=== PATIENT | female | born 1995 | race Caucasian/White ===

== ENCOUNTER 2018-09-06 06:06 | Emergency (ER) | payer OTHER ==
[2018-09-06 06:22] VITALS: RESP 18
[2018-09-06 06:43] LABS: Appearance,Urine Clear (Clear); Bilirubin,Urine Negative (Negative); Blood,Urine Negative (Negative); Color,Urine Light Yellow; Glucose,Urine (UA) Negative (Negative); Ketones,Urine Negative (Negative); Leukocyte Esterase,Urine Trace (Negative); Mucus,Urine Rare /hpf; Nitrite,Urine Negative (Negative); PH, Urine 6.5 (5.0-8.0); Protein,Urine Negative (Negative); RBC,Urine 1 /hpf (0-5); Specific Gravity,Urine 1.026 (1.001-1.035); Squamous Epithelial Cell,Urine 5 /hpf (0-4); Urobilinogen,Urine <2.0 mg/dL (<2.0); WBC,Urine 6 /hpf (0-5)
[2018-09-06 07:00] LABS: Basophils # (A) 0.1 k/uL (0-0.2); Basophils % (A) 1 %; Eosinophils # (A) 0.4 k/uL (0-0.7); Eosinophils % (A) 3 %; HCT 42.2 % (34.0-46.0); HGB 13.7 gm/dL (11.4-16.0); Lymphocytes # (A) 3.5 k/uL (1.0-4.8); Lymphocytes % (A) 21 %; MCH 28.1 pg (25.0-35.0); MCHC 32.5 g/dL (31.0-37.0); MCV 86.7 fL (80.0-100.0); Mean Platelet Volume 7.9; Monocytes # (A) 0.6 k/uL (0-1.0); Monocytes % (A) 4 %; Neutrophils # (A) 11.1 k/uL (1.3-7.7); Neutrophils % (A) 69 %; Platelet Count 489 k/uL (150-450); RBC 4.87 m/uL (3.80-5.40); RDW 14.5 % (11.5-15.5); WBC 16.2 k/uL (3.8-10.6)
[2018-09-06 07:06] LABS: ALT 40 U/L (9-52); AST 24 U/L (14-36); African American GFR (CKD) >90 (>60 ml/min/1.73 sqM); Albumin 4.4 g/dL (3.5-5.0); Alkaline Phosphatase 85 U/L (38-126); Anion Gap 11 mmol/L; Blood Urea Nitrogen 10 mg/dL (7-17); Calcium 9.5 mg/dL (8.4-10.2); Carbon Dioxide 25 mmol/L (22-30); Chloride 106 mmol/L (98-107); Glucose 99 mg/dL (74-99); Potassium 3.9 mmol/L (3.5-5.1); Sodium 142 mmol/L (137-145); Total Bilirubin 0.4 mg/dL (0.2-1.3); Total Protein 7.5 g/dL (6.3-8.2)
--- NOTE | 2018-09-06 07:24 | ED ---
Abdominal Pain HPI - General Source: patient Mode of arrival: ambulatory Limitations: physical limitation <Grisel Gomez - Last Filed: 09/06/18 07:39> <Petros Garces - Last Filed: 09/06/18 08:52> - General Chief Complaint: Abdominal Pain Stated Complaint: Lower abd pain Time Seen by Provider: 09/06/18 06:24 - History of Present Illness Initial Comments: Linda a previously healthy 22-year-old female presents the emergency department today for evaluation of right lower abdominal pain. Patient reports she works nights she's been going to light. She's been having some pain in her right lower abdomen. Patient reports that initially the pain was mildly tender waxed and waned throughout the night. At one point the pain seemed to be worse with laying down. Patient reports that while she was working people told that she looked pale most like she was feeling well and encouraged her to come to the ER. Patient reports that in the past hour the pain seems to be getting better. She's not taken anything for the pain. Pain is in the right lower quadrant as described a sharp, constant throughout the night but improving now. Pain is not associated with any fevers, chills, nausea, vomiting, change in bowel or bladder habits. Patient reports her last menses was 2 weeks ago. She has no concern for or sexual transmitted infections. She is is no history of ovarian cysts (Grisel Gomez) - Related Data Home Medications Medication Instructions Recorded Confirmed ARIPiprazole [Abilify] 2.5 mg PO BID 09/06/18 09/06/18 Lisdexamfetamine Dimesylate 40 mg PO HS@2100 09/06/18 09/06/18 [Vyvanse] OXcarbazepine [Trileptal] 75 mg PO HS@2100 09/06/18 09/06/18 Allergies Allergy/AdvReac Type Severity Reaction Status Date / Time pseudoephedrine AdvReac Nausea & Verified 09/06/18 08:20 [From Sudafed] Vomiting Review of Systems ROS Other: All systems not noted in ROS Statement are negative. <Grisel Gomez - Last Filed: 09/06/18 07:39> ROS Other: All systems not noted in ROS Statement are negative. <Petros Garces - Last Filed: 09/06/18 08:52> ROS Statement: Those systems with pertinent positive or pertinent negative responses have been documented in the HPI. Past Medical History Past Medical History: No Reported History History of Any Multi-Drug Resistant Organisms: None Reported Past Surgical History: No Surgical Hx Reported Past Psychological History: ADD/ADHD, Anxiety, Bipolar Smoking Status: Current every day smoker Past Alcohol Use History: Occasional Past Drug Use History: None Reported <Grisel Gomez - Last Filed: 09/06/18 07:39> General Exam Limitations: physical limitation <Grisel Gomez - Last Filed: 09/06/18 07:39> - General Exam Comments Initial Comments: Physical Exam GENERAL: Patient is well-developed and well-nourished. Patient is nontoxic and well- hydrated and is in no distress. HENT: Normocephalic, Atraumatic. EYES: PERRL, EOMI PULMONARY: Unlabored respirations. No audible rales rhonchi or wheezing was noted. CARDIOVASCULAR: There is a regular rate and rhythm without any murmurs gallops or rubs. ABDOMEN: Soft, normal active bowel sounds Mild tenderness to deep palpation in the right lower quadrant Non-peritoneal SKIN: Skin is clear with no lesions or rashes and otherwise unremarkable. : Deferred NEUROLOGIC: Patient is alert and oriented x3. Moving all extremities spontaneously MUSCULOSKELETAL: Normal extremities with adequate strength and full range of motion. No lower extremity swelling or edema. No calf tenderness. PSYCHIATRIC: Normal psychiatric evaluation (Grisel Gomez) Course Vital Signs 09/06/18 06:17 Temperature 98.5 F Pulse Rate 96 Respiratory 18 Rate Blood Pressure 120/77 O2 Sat by Pulse 97 Oximetry Medical Decision Making - Lab Data Result diagrams: 09/06/18 06:40 09/06/18 06:40 <Grisel Gomez - Last Filed: 09/06/18 07:39> - Lab Data Result diagrams: 09/06/18 06:40 09/06/18 06:40 - Radiology Data Radiology results: report reviewed (Ultrasound of pelvis and abdomen reveal no acute abnormality. Of note appendix is not specifically visualized) <Petros Garces - Last Filed: 09/06/18 08:52> - Medical Decision Making The patient was seen and evaluated history was obtained from the patient Patient presented for evaluation of abdominal pain she reports is been improving over the past hour. Exam reveals a slightly overweight female in no acute distress Aylin abdomen soft with tenderness to deep palpation in the right lower quadrant. Patient is midcycle for her menses. Labs and ultrasound imaging were ordered. Initially patient declined lab stating that she is scared of needles. Patient stated that she felt that getting an IV would be more painful than the abdominal pain she is experiencing. After discussion with the patient and advising her that we cannot rule out pathology without labs and imaging patient agreed to an IV and further workup. Labs resulted leukocytosis with neutrophilia, lymphocytosis CMP unremarkable UA with no signs of infection negative Patient care signed out to Dr Garces at shift change, imaging pending. (Grisel Gomez) Patient reevaluated and resting comfortably in bed. Patient states she is symptom free at this time and requests discharge home. Abdomen is soft and nontender. Patient is a made aware of results. Patient is made aware that appendicitis has not been ruled out at this point. Patient is made aware of co ncerns for mild elevation of CRP as well as elevation of white blood cell count and appendix is not seen on ultrasound. Patient is advised to consider computed tomography scan and this is offered to her however she does refuse. Patient is agreeable to return if her symptoms return or worsen. (Petros Garces) - Lab Data Lab Results 09/06/18 09/06/18 09/06/18 Range/Units 06:30 06:30 06:40 WBC (3.8-10.6) k/uL RBC (3.80-5.40) m/uL Hgb (11.4-16.0) gm/dL Hct (34.0-46.0) % MCV (80.0-100.0) fL MCH (25.0-35.0) pg MCHC (31.0-37.0) g/dL RDW (11.5-15.5) % Plt Count (150-450) k/uL Neutrophils % % Lymphocytes % % Monocytes % % Eosinophils % % Basophils % % Neutrophils # (1.3-7.7) k/uL Lymphocytes # (1.0-4.8) k/uL Monocytes # (0-1.0) k/uL Eosinophils # (0-0.7) k/uL Basophils # (0-0.2) k/uL Sodium 142 (137-145) mmol/L Potassium 3.9 (3.5-5.1) mmol/L Chloride 106 (98-107) mmol/L Carbon Dioxide 25 (22-30) mmol/L Anion Gap 11 mmol/L BUN 10 (7-17) mg/dL Creatinine 0.59 (0.52-1.04) mg/dL Est GFR (CKD-EPI)AfAm >90 (>60 ml/min/1.73 sqM) Est GFR (CKD-EPI)NonAf >90 (>60 ml/min/1.73 sqM) Glucose 99 (74-99) mg/dL Calcium 9.5 (8.4-10.2) mg/dL Total Bilirubin 0.4 (0.2-1.3) mg/dL AST 24 (14-36) U/L ALT 40 (9-52) U/L Alkaline Phosphatase 85 (38-126) U/L C-Reactive Protein 20.8 H (<10.0) mg/L Total Protein 7.5 (6.3-8.2) g/dL Albumin 4.4 (3.5-5.0) g/dL Urine Color Light Yellow Urine Appearance Clear (Clear) Urine pH 6.5 (5.0-8.0) Ur Specific [place] 1.026 (1.001-1.035) Urine Protein Negative (Negative) Urine Glucose (UA) Negative (Negative) Urine Ketones Negative (Negative) Urine Blood Negative (Negative) Urine Nitrite Negative (Negative) Urine Bilirubin Negative (Negative) Urine Urobilinogen <2.0 (<2.0) mg/dL Ur Leukocyte Esterase Trace H (Negative) Urine RBC 1 (0-5) /hpf Urine WBC 6 H (0-5) /hpf Ur Squamous Epith Cells 5 H (0-4) /hpf Urine Mucus Rare H (None) /hpf Urine HCG, Qual Not Detected (Not Detectd) 09/06/18 Range/Units 06:40 WBC 16.2 H (3.8-10.6) k/uL RBC 4.87 (3.80-5.40) m/uL Hgb 13.7 (11.4-16.0) gm/dL Hct 42.2 (34.0-46.0) % MCV 86.7 (80.0-100.0) fL MCH 28.1 (25.0-35.0) pg MCHC 32.5 (31.0-37.0) g/dL RDW 14.5 (11.5-15.5) % Plt Count 489 H (150-450) k/uL Neutrophils % 69 % Lymphocytes % 21 % Monocytes % 4 % Eosinophils % 3 % Basophils % 1 % Neutrophils # 11.1 H (1.3-7.7) k/uL Lymphocytes # 3.5 (1.0-4.8) k/uL Monocytes # 0.6 (0-1.0) k/uL Eosinophils # 0.4 (0-0.7) k/uL Basophils # 0.1 (0-0.2) k/uL Sodium (137-145) mmol/L Potassium (3.5-5.1) mmol/L Chloride (98-107) mmol/L Carbon Dioxide (22-30) mmol/L Anion Gap mmol/L BUN (7-17) mg/dL Creatinine (0.52-1.04) mg/dL Est GFR (CKD-EPI)AfAm (>60 ml/min/1.73 sqM) Est GFR (CKD-EPI)NonAf (>60 ml/min/1.73 sqM) Glucose (74-99) mg/dL Calcium (8.4-10.2) mg/dL Total Bilirubin (0.2-1.3) mg/dL AST (14-36) U/L ALT (9-52) U/L Alkaline Phosphatase (38-126) U/L C-Reactive Protein (<10.0) mg/L Total Protein (6.3-8.2) g/dL Albumin (3.5-5.0) g/dL Urine Color Urine Appearance (Clear) Urine pH (5.0-8.0) Ur Specific [place] (1.001-1.035) Urine Protein (Negative) Urine Glucose (UA) (Negative) Urine Ketones (Negative) Urine Blood (Negative) Urine Nitrite (Negative) Urine Bilirubin (Negative) Urine Urobilinogen (<2.0) mg/dL Ur Leukocyte Esterase (Negative) Urine RBC (0-5) /hpf Urine WBC (0-5) /hpf Ur Squamous Epith Cells (0-4) /hpf Urine Mucus (None) /hpf Urine HCG, Qual (Not Detectd) Disposition <Gomez,Grisel P - Last Filed: 09/06/18 07:39> Is patient prescribed a controlled substance at d/c from ED?: No Time of Disposition: 08:52 <Petros Garces - Last Filed: 09/06/18 08:52> Clinical Impression: Abdominal pain Disposition: HOME SELF-CARE Condition: Stable Instructions (If sedation given, give patient instructions): Abdominal Pain (ED) Additional Instructions: Please follow-up with primary care physician in the next day or 2 for recheck. Return for abdominal pain, vomiting, fever, worsening or change in symptoms or any other concerns. Referrals: Becca Godinez MD [Primary Care Provider] - 1-2 days
[2018-09-06 07:46] LABS: C Reactive Protein 20.8 mg/L (<10.0)
--- NOTE | 2018-09-06 08:16 | US ---
EXAMINATION TYPE: US abdomen APPY DATE OF EXAM: 09/06/2018 COMPARISON: NONE CLINICAL HISTORY: RLQ pain, leukocytosis. APPENDIX AP Diameter (normal < 6mm): Not visualized Measured outer wall to outer wall. Is the appendix seen in its entirety from the proximal cecum to distal end: No, the appendix is not visualized. Is there inflammatory changes or free fluid present: No IMPRESSION: Although no secondary signs of appendicitis are seen the appendix is not identified sono graphically to exclude appendicitis.
--- NOTE | 2018-09-06 08:18 | US ---
EXAMINATION TYPE: US pelvic complete DATE OF EXAM: 09/06/2018 COMPARISON: NONE CLINICAL HISTORY: RLW pain, leukocytosis. Patient refused the transvaginal ultrasound. TECHNIQUE: Transabdominal sonographic images of the pelvis were acquired. Date of LMP: 08/16/2018 EXAM MEASUREMENTS: Uterus: 7.4 x 3.6 x 4.3 cm Endometrial Stripe: 1.1 cm Right Ovary: 3.7 x 1.9 x 1.8 cm Left Ovary: 3.3 x 2.6 x 2.3 cm 1. Uterus: Anteverted wnl as visualized 2. Endometrium: wnl 3. Right Ovary: wnl as visualized 4. Left Ovary: wnl as visualized Spectral, color and waveform doppler imaging shows good arterial and venous flow within the ovaries ; there is no evidence for ovarian torsion. 5. Bilateral Adnexa: wnl 6. Posterior cul-de-sac: wnl IMPRESSION: Unremarkable pelvic ultrasound. Endometrial thickness is within normal limits for a preme nopausal female. Vascular flow is seen to both ovaries.
[2018-09-06 09:13] VITALS: BP 128/79; PULSE 80; TEMP 97.9
== END 2018-09-06 09:12 | disposition home or self-care (01) ==
LOC: EC 06:06
DX: D72.820 Lymphocytosis (symptomatic) (principal); R79.82 Elevated C-reactive protein (CRP); F90.9 Attention-deficit hyperactivity disorder, unspecified type; F31.9 Bipolar disorder, unspecified; F17.200 Nicotine dependence, unspecified, uncomplicated; Z79.899 Other long term (current) drug therapy; Z88.8 Allergy status to other drugs, medicaments and biological substances
CPT/HCPCS: 36415; 76705; 76856; 80053; 81001; 81025; 85025; 86140; 93975; 99284

== ENCOUNTER → 2018-10-13 | Outpatient (CLI) | payer OTHER ==
--- NOTE | 2018-10-13 15:19 | US ---
EXAMINATION TYPE: US abdomen complete DATE OF EXAM: 10/13/2018 COMPARISON: NONE CLINICAL HISTORY: R10.11 RUQ Abdominal pain. RUQ Pain EXAM MEASUREMENTS: Liver Length: 12.4 cm Gallbladder Wall: 0.2 cm CBD: 0.4 cm Spleen: 11.2 cm Right Kidney: 9.6 x 4.6 x 4.3 cm Left Kidney: 10.9 x 5.4 x 3.8 cm Pancreas: Obscured by bowel gas Liver: Increased attenuation Gallbladder: wnl Evidence for sonographic Willams's sign: No CBD: wnl Spleen: wnl Right Kidney: wnl Left Kidney: wnl Upper IVC: wnl Abd Aorta: wnl IMPRESSION: 1. Mild fatty infiltration liver.
== END | disposition home or self-care (01) ==
LOC: RADUSWWP 08:57
PROVIDERS: ATTEND Internal Medicine
DX: K76.0 Fatty (change of) liver, not elsewhere classified (principal)
CPT/HCPCS: 76700

== ENCOUNTER 2019-08-14 06:32 | Emergency (ER) | payer OTHER ==
[2019-08-14 06:49] VITALS: RESP 18; TEMP 97.9
--- NOTE | 2019-08-14 07:03 | ED ---
Headache HPI - General Chief Complaint: Headache Stated Complaint: headache Time Seen by Provider: 08/14/19 06:40 Source: patient, RN notes reviewed Mode of arrival: ambulatory Limitations: no limitations - History of Present Illness Initial Comments: This a 23-year-old female presents emergency Department chief complaint of a headache. Patient states she had a headache earlier today that lasted less than 60 seconds she states she felt pressure and pain by her right eye. She had no visual changes no fevers or chills no focal weakness. Chin no associated nausea vomiting. States the headache immediately resolved. She has had some headaches that this over the last few days states it has been intermittent over the last week or so. Patient does admit that she has frequent headaches her concern at this time is that her grandfather aneurysm. Patient states that there is a family has been screaming. She has had a CAT scan approximately 3 years ago which was negative. Patient currently states she has no symptoms denies any headache, dizziness, blurred vision or any associated symptoms. - Related Data Home Medications Medication Instructions Recorded Confirmed ARIPiprazole [Abilify] 2.5 mg PO BID 09/06/18 09/06/18 Lisdexamfetamine Dimesylate 40 mg PO HS@2100 09/06/18 09/06/18 [Vyvanse] OXcarbazepine [Trileptal] 75 mg PO HS@2100 09/06/18 09/06/18 Allergies Allergy/AdvReac Type Severity Reaction Status Date / Time pseudoephedrine AdvReac Nausea & Verified 08/14/19 06:49 [From Sudafed] Vomiting Review of Systems ROS Statement: Those systems with pertinent positive or pertinent negative responses have been documented in the HPI. ROS Other: All systems not noted in ROS Statement are negative. Past Medical History Past Medical History: No Reported History History of Any Multi-Drug Resistant Organisms: None Reported Past Surgical History: No Surgical Hx Reported Past Psychological History: ADD/ADHD, Anxiety, Bipolar Smoking Status: Former smoker Past Alcohol Use History: None Reported Past Drug Use History: None Reported General Exam Limitations: no limitations General appearance: alert, in no apparent distress Head exam: Present: atraumatic, normocephalic, normal inspection Eye exam: Present: normal appearance, PERRL, EOMI. Absent: scleral icterus, conjunctival injection, periorbital swelling ENT exam: Present: normal exam, normal oropharynx, mucous membranes moist Neck exam: Present: normal inspection, full ROM. Absent: tenderness, meningismus, lymphadenopathy Respiratory exam: Present: normal lung sounds bilaterally. Absent: respiratory distress, wheezes, rales, rhonchi, stridor Cardiovascular Exam: Present: regular rate, normal rhythm, normal heart sounds. Absent: systolic murmur, diastolic murmur, rubs, gallop, clicks Neurological exam: Present: alert, oriented X3, CN II-XII intact, reflexes normal, other (Finger to nose intact bilaterally without over shooting.). Absent: motor sensory deficit Skin exam: Present: warm, dry, intact, normal color. Absent: rash Course Vital Signs 08/14/19 06:42 Temperature 97.9 F Pulse Rate 89 Respiratory 18 Rate Blood Pressure 128/87 O2 Sat by Pulse 98 Oximetry Medical Decision Making - Medical Decision Making 23-year-old female resent for intermittent headaches. She is asymptomatic this time. Patient is 13 weeks . I did discuss imaging if she is concerned about possible aneurysm. I did explain that there is radiation exposure with CT and improved study would be CT with contrast to rule out aneurysm. Patient is asymptomatic. I did offer a plain CT but she states that if she is asymptomatic she feels comfortable with follow-up with her PCP tomorrow to discuss possible MRI. I did explain there is wrist with doing CT and with going home with no imaging as I cannot rule out an aneurysm. Patient states she'll return for any change in symptoms. Disposition Clinical Impression: Headache Disposition: HOME SELF-CARE Condition: Stable Instructions (If sedation given, give patient instructions): Acute Headache (ED) Additional Instructions: Please return to the Emergency Department if symptoms worsen or any other concerns. Is patient prescribed a controlled substance at d/c from ED?: No Referrals: Becca Godinez MD [Primary Care Provider] - 1-2 days Time of Disposition: 07:01
[2019-08-14 07:32] VITALS: BP 122/78; PULSE 85
== END 2019-08-14 07:30 | disposition home or self-care (01) ==
LOC: EC 06:32
DX: O99.89 Other specified diseases and conditions complicating pregnancy, childbirth and the puerperium (principal); R51 Headache; O99.341 Other mental disorders complicating pregnancy, first trimester; F90.9 Attention-deficit hyperactivity disorder, unspecified type; F31.9 Bipolar disorder, unspecified; Z3A.13 13 weeks gestation of pregnancy; Z79.899 Other long term (current) drug therapy; Z88.8 Allergy status to other drugs, medicaments and biological substances; Z87.891 Personal history of nicotine dependence
CPT/HCPCS: 99283

== ENCOUNTER 2019-09-26 13:27 | Outpatient (CLI) | payer OTHER ==
[2019-09-26 14:33] VITALS: BP 121/78; PULSE 106; RESP 18; TEMP 98.2
--- NOTE | 2019-10-26 07:56 | P.MSEPDOC ---
Presenting Problems - Arrival Data Date of Arrival on Unit: 09/26/19 Time of Arrival on Unit: 14:00 Mode of Transport: Ambulatory - Complaint OB-Reason for Admission/Chief Complaint: Rule Out SROM Comment: gush at 0600 after voiding Medical History - Information : 1 Para: 0 Term: 0 : 0 Abortions: Spontaneous or Elective: 0 Number of Living Children: 0 - Gestational Age Gestational Age by SHERRON (wks/days): 39 Weeks and 2 Days Review of Systems - Review of Systems Constitutional: No problems Breast: No problems ENT: No problems Cardiovascular: No problems Respiratory: No problems Gastrointestinal: No problems Genitourinary: No problems Musculoskeletal: No problems Neurological: No problems Skin: No problems Vital Signs - Temperature Temperature: 98.2 F Temperature Source: Oral - Pulse Right Sitting Brachial Pulse Rate: 106 Pulse Assessment Method: Pulse Oximetry - Respirations Respiratory Rate: 18 Oxygen Delivery Method: Room Air O2 Sat by Pulse Oximetry: 99 - Blood Pressure Right Arm Sitting Blood Pressure: 121/78 Blood Pressure Mean: 92 Blood Pressure Source: Automatic Cuff Medical Screen Scoring (Pre) - Cervical Exam Dilation: Exam Deferred Effacement: Exam Deferred - Uterine Contractions Frequency: > 5 minutes apart = 1 Duration: > 40 seconds = 2 Intensity: N/A - Maternal Vital Signs Maternal Temperature: N/A Maternal Blood Pressure: N/A Signs of Preeclampsia: N/A Maternal Respirations: N/A - Maternal Trauma Maternal Trauma: N/A - Assessment - Baby A Baseline FHR: 135 Heart Rate - NICHD Category: Category I (Normal) = 0 NST: Reactive Position: N/A Station: N/A - Total Score - Baby A Total Score - Baby A: 3 - Total Score - Baby B Total Score - Baby B: 3 - Total Score - Baby C Total Score - Baby C: 3 - Level of Risk - Baby A Level of Risk - Baby A: Low (0-5) - Level of Risk - Baby B Level of Risk - Baby B: Low (0-5) - Level of Risk - Baby C Level of Risk - Baby C: Low (0-5) - Pain Assessment Pain Scale Used: Numeric (1 - 10) Pain Intensity: 0 Pain Management Goal: 3 Physician Notification (Pre) - Physician Notified Physician Notified Date: 06/29/20 Physician Notified Time: 14:25 New Order Received: Yes - Notification Comment Comment: amnisure negative. Pt declines vaginal exam. dc home after reactive NST. pt to see Dr Daniels in the office today at 1500 as scheduled. Disposition - Disposition OB Disposition: Physician follow up in office, Discharge to home Discharge Date: 09/26/19 Discharge Time: 14:33 I agree with the RN Medical Screening Exam: Yes Risk & Benefit of care provided described in d/c instruction: Yes Diagnosis: FALSE LABOR AT OR AFTER 37 COMPLETED WEEKS OF GESTATION
== END 2019-09-26 14:34 | disposition home or self-care (01) ==
LOC: FBPOP 13:27
PROVIDERS: ATTEND Obstetrics & Gynecology
DX: O47.1 False labor at or after 37 completed weeks of gestation (principal); Z3A.39 39 weeks gestation of pregnancy
CPT/HCPCS: 59025; 84112; G0463; 99213

== ENCOUNTER 2019-09-28 13:12 | Inpatient (IN) | payer OTHER ==
[2019-09-28] MEDS: LACTATED RINGERS 1,000 ML IV SCH ×2 (13:45→23:37)
[2019-09-28] MEDS ORDERED: OXYTOCIN 10 UNIT/ML 1 ML VIAL IM PRN (13:46)
[2019-09-28] MEDS ORDERED: LIDOCAINE 0.5% (PF) 5 MG/ML (50 ML SDV) SQ PRN (13:46)
[2019-09-28] MEDS ORDERED: CARBOPROST TROMETHAMINE 250 MCG/ML 1 ML AMP IM PRN (13:46)
[2019-09-28] MEDS ORDERED: TERBUTALINE 1 MG/ML VIAL SQ PRN (13:46)
[2019-09-28] MEDS ORDERED: METHYLERGONOVINE 0.2 MG/ML 1 ML AMP IM PRN (13:46)
[2019-09-28 14:08] LABS: Basophils % (A) 0 %; Eosinophils # (A) 0.1 k/uL (0-0.7); Eosinophils % (A) 1 %; HCT 37.7 % (34.0-46.0); HGB 11.5 gm/dL (11.4-16.0); Hypochromasia Slight; Lymphocytes # (A) 2.2 k/uL (1.0-4.8); Lymphocytes % (A) 14 %; MCH 25.4 pg (25.0-35.0); MCHC 30.5 g/dL (31.0-37.0); MCV 83.3 fL (80.0-100.0); Mean Platelet Volume 9.8; Monocytes # (A) 0.7 k/uL (0-1.0); Monocytes % (A) 4 %; Neutrophils # (A) 12.8 k/uL (1.3-7.7); Neutrophils % (A) 78 %; Platelet Count 367 k/uL (150-450); RBC 4.52 m/uL (3.80-5.40); RDW 14.6 % (11.5-15.5); WBC 16.4 k/uL (3.8-10.6)
--- NOTE | 2019-09-28 14:37 | P.HPOB ---
History of Present Illness H&P Date: 09/28/19 Chief Complaint: Strong uterine contractions This is a 24-year-old white female 1 para 0 EDC 10/01/2019 at 39-4/7 weeks' gestation. Patient presents with strong regular uterine contractions from home. She denies vaginal bleeding or fluid leakage. Fetus is been active throughout the . Past medical history is significant for migraine headaches, head CT negative in 2017, neurologist following with diagnosis of trigeminal neuralgia given. Patient has a history of bipolar disorder, off medications at this time. She has a history of anxiety as well. Past surgical history is negative. Current medications vitamins. ALLERGIES none known. Family history significant for melanoma, hypertension, glaucoma, brain aneurysm. Social history patient is single, father of the baby is involved. She is a former tobacco smoker. She denies alcohol or drug use. history significant for blood type B positive, rubella status immune. VDRL testing, urine culture, hepatitis B surface antigen, HIV testing, gonorrhea and chlamydia cultures all negative. Group B strep cultures negative. One-hour Glucola 118. Sonogram of the infant suggests bilateral full renal pelves, bladder within normal limits. On exam this is a pleasant young female 5 foot 6 inches 250 pounds blood pressure 134/81. General exam is within normal limits. Chest: All woods. Artificial amniorrhexis reveals light meconium-stained fluid. Cervix is 9 cm dilated, 90% effaced, -1 station. heart tones are consistent with reactive NST. Impression: 39-4/7 weeks intrauterine , active labor, light meconium- stained fluid, all signs otherwise reassuring. Plan: Analgesic options have been offered and declined. Continue close maternal and surveillance. Anticipate normal spontaneous vaginal delivery. Review of Systems Negative except as in HPI Constitutional: Reports as per HPI Past Medical History Past Medical History: No Reported History History of Any Multi-Drug Resistant Organisms: None Reported Past Surgical History: No Surgical Hx Reported Past Anesthesia/Blood Transfusion Reactions: No Reported Reaction Past Psychological History: ADD/ADHD, Anxiety, Bipolar Smoking Status: Never smoker Past Alcohol Use History: None Reported Past Drug Use History: None Reported - Past Family History Mother Family Medical History: No Reported History Medications and Allergies Home Medications Medication Instructions Recorded Confirmed Type Pnv No.95/Ferrous Fum/Folic AC 1 each PO DAILY 09/26/19 09/28/19 History [ Multivitamin Tablet] Acetaminophen Tab [Tylenol] 650 mg PO Q6H 09/28/19 09/28/19 History Allergies Allergy/AdvReac Type Severity Reaction Status Date / Time No Known Allergies Allergy Verified 09/28/19 13:16 Exam Vital Signs Temp Pulse Resp BP 09/28/19 14:05 97.9 F 117 H 18 134/81 09/28/19 13:57 97.9 F 117 H 18 134/81 Intake and Output 09/27/19 09/28/19 09/28/19 22:59 06:59 14:59 Other: # Voids 1 Weight 113.398 kg See dictation under HPI please Results Result Diagrams: 09/28/19 13:50 Abnormal Lab Results - Last 24 Hours (Table) 09/28/19 Range/Units 13:50 WBC 16.4 H (3.8-10.6) k/uL MCHC 30.5 L (31.0-37.0) g/dL Neutrophils # 12.8 H (1.3-7.7) k/uL Assessment and Plan Assessment: 39-4/7 weeks intrauterine , active spontaneous labor, light meconium- stained fluid. All signs otherwise reassuring. Plan: Continue close maternal and surveillance. Anticipate normal spontaneous vaginal delivery. Time with Patient: Less than 30
[2019-09-28] MEDS ORDERED: PHENYLEPHRINE-0.9% NACL SYG 1 MG/10 ML SYRINGE ONE (19:16)
[2019-09-28] MEDS ORDERED: OXYTOCIN 10 UNIT/ML 1 ML VIAL ONE (19:16)
[2019-09-28] MEDS ORDERED: MORPHINE SULFATE (PF) 0.3 MG/0.3 ML SYR ONE (19:16)
[2019-09-28] MEDS ORDERED: ceFAZolin 1,000 MG VIAL ONE (19:16)
[2019-09-28] MEDS ORDERED: ONDANSETRON 4 MG/2 ML VIAL ONE (19:16)
[2019-09-28] MEDS ORDERED: SODIUM CHLORIDE 0.9% 100 ML BAG ONE (19:16)
[2019-09-28] MEDS ORDERED: KETOROLAC 30 MG/ML 1 ML VIAL ONE (19:16)
[2019-09-28] MEDS ORDERED: diphenhydrAMINE 50 MG CAP PO PRN (20:14)
[2019-09-28] MEDS ORDERED: ONDANSETRON 4 MG/2 ML VIAL IVP PRN (20:14)
[2019-09-28] MEDS ORDERED: NALOXONE 0.4 MG/ML 1 ML VIAL IV PRN (20:14)
[2019-09-28] MEDS ORDERED: SIMETHICONE 80 MG CHEWABLE PO PRN (20:14)
[2019-09-28] MEDS ORDERED: ACETAMINOPHEN TAB 325 MG TAB PO PRN (20:14)
[2019-09-28] MEDS ORDERED: diphenhydrAMINE 50 MG/ML 1 ML VIAL IVP PRN ×2 (20:14)
[2019-09-28] MEDS ORDERED: METOCLOPRAMIDE 5 MG/ML 2 ML VIAL IVP PRN (20:14)
[2019-09-28] MEDS ORDERED: IBUPROFEN 600 MG TAB PO PRN (20:14)
[2019-09-28] MEDS ORDERED: ZOLPIDEM 5 MG TAB PO PRN (20:14)
[2019-09-28] MEDS ORDERED: diphenhydrAMINE 25 MG CAP PO PRN (20:14)
--- NOTE | 2019-09-28 20:14 | P.OP ---
Date of Procedure: 09/28/19 Preoperative Diagnosis: 39-4/7 weeks intrauterine , meconium-stained fluid, arrest of descent in the second stage. Postoperative Diagnosis: Same, left occiput transverse position, liveborn female Procedure(s) Performed: Primary low transverse section Anesthesia: spinal Surgeon: Ines Daniels Cold Header #1: Rebekah Montes Estimated Blood Loss (ml): 500 IV fluids (ml): 600 Urine output (ml): 100 Pathology: none sent Condition: stable Disposition: PACU Operative Findings: Liveborn female in the left occiput transverse position, scores 9 and 9 at one and 5 minutes respectively. Normal-appearing tubes and ovaries bilaterally. Description of Procedure: Patient pushed in the second stage of labor for over 1 hour, no descent was noted past several station. Decision was made to proceed with primary low transverse section, as maternal expulsive efforts were excellent. Antibiotics were given. Bicitra given. Mckeon catheter placed. 2 g of Ancef given. Patient is brought back to the operating room where a spinal analgesia is administered without difficulty per Dr. Wasserman. She's placed in the dorsal supine position with left lateral uterine displacement. The appropriate timeout is performed to assure proper patient and procedural identification. A low transverse skin incision is made and carried down through the subcutaneous tissue. Fascia is isolated, scored, extended bilaterally with curved Morales scissors. Peritoneum is next identified and incised hours no bowel or bladder involvement. The bladder blade is placed over the dome of the bladder and at all times the bladder is Well from the operative field to avoid injury. A low transverse uterine incision is made. Upon entering the uterine cavity meconium-stained fluid is encountered. The 's head is delivered in the left occiput transverse position. There is no nuchal cord noted. The oropharynx, nasopharynx, and external nares were all bulb suctioned. Patient is officially delivered of a liveborn female at 1934 hrs. Umbilical cord is doubly clamped and ligated, she is handed to waiting nurses for evaluation where scores of 9 and 9 at one and 5 minutes respectively are given. The placentas delivered manually, it is inspected and noted to be intact with trivascular cord at 1935 hrs. Uterus is then externalized and massaged. Oxytocin is given. Uterus is swept clean with a sterile sponge to avoid any retained products of conception. The edges are grasped with Collazo clamps. The incision is closed in a two-step fashion, first layer running locking with 0 Vicryl, second layer imbricated with 0 Vicryl for excellent hemostasis and approximation. Bilateral tubes are inspected and noted to be normal. Ovaries appear normal. Abdomen is suctioned with suction on guard posterior to the uterus and the uterus is gently placed back into the abdominal cavity. Bilateral gutters are inspected and cleaned. Uterine incision is hemostatically intact. Peritoneum was allowed to close by secondary intention. Fascia is closed in a running stitch of 0 Vicryl with over ligation in the midline. Subcutaneous tissue is irrigated, clean and dry. It is reapproximated with 3-0 Vicryl in a running stitch. 4-0 undyed Monocryl is used for final skin closure in a subcuticular manner. Steri-Strips and Mastisol are applied to the wound. All sponge needle and instrument counts are correct at the end procedure. Mcekon is noted to be draining clear urine. Patient is brought back to the recovery room in very good condition with stable vital signs including a pulse of 85, blood pressure 116/70. Patient and her family are allowed to begin the bonding experience in the LDR. weighs 8 lbs. 1 oz. or 3670 g.
[2019-09-28] MEDS ORDERED: CITRIC ACID-SODIUM CITRATE 15 ML CUP PO ONE (21:19)
[2019-09-29] MEDS: KETOROLAC 30 MG/ML 1 ML VIAL IVP PRN ×3 (04:21→19:04)
[2019-09-29] MEDS: LACTATED RINGERS 1,000 ML IV SCH ×4 (04:23→21:38)
[2019-09-29 06:54] LABS: Basophils % (A) 0 %; Eosinophils # (A) 0.1 k/uL (0-0.7); Eosinophils % (A) 1 %; HCT 32.1 % (34.0-46.0); HGB 10.5 gm/dL (11.4-16.0); Hypochromasia Slight; Lymphocytes # (A) 2.7 k/uL (1.0-4.8); Lymphocytes % (A) 15 %; MCH 27.6 pg (25.0-35.0); MCHC 32.9 g/dL (31.0-37.0); MCV 83.9 fL (80.0-100.0); Monocytes # (A) 0.9 k/uL (0-1.0); Monocytes % (A) 5 %; Neutrophils # (A) 13.3 k/uL (1.3-7.7); Neutrophils % (A) 76 %; Platelet Count 352 k/uL (150-450); RBC 3.82 m/uL (3.80-5.40); RDW 14.4 % (11.5-15.5); WBC 17.6 k/uL (3.8-10.6)
--- NOTE | 2019-09-29 08:16 | P.PN ---
Subjective Progress Note Date: 09/29/19 Principal diagnosis: Postoperative day #1 Positive flatus. Slept well. No complaints. Objective - Vital Signs Vital signs: Vital Signs Temp 98.3 F 09/29/19 07:29 Pulse 115 H 09/29/19 07:29 Resp 16 09/29/19 07:29 BP 124/56 09/29/19 07:29 Pulse Ox 96 09/29/19 07:29 Intake & Output 09/28/19 09/29/19 09/29/19 18:59 06:59 18:59 Intake Total 1000 Output Total 600 Balance 400 Weight 113.398 kg Intake: IV 1000 Output: Urine 600 Uretheral ([place]) 600 Other: Voiding Method Indwelling Catheter # Voids 1 1 - Constitutional General appearance: Present: average body habitus, cooperative - EENT Eyes: Present: PERRLA ENT: Present: hearing grossly normal - Neck Thyroid: bilateral: normal size - Respiratory Respiratory: bilateral: CTA - Cardiovascular Rhythm: regular - Gastrointestinal General gastrointestinal: Present: normal bowel sounds - Neurologic Neurologic: Present: CNII-XII intact - Musculoskeletal Musculoskeletal: Present: gait normal, strength equal bilaterally - Psychiatric Psychiatric: Present: A&O x's 3, appropriate affect, intact judgment & insight - Labs CBC & Chem 7: 09/29/19 06:18 Labs: Abnormal Lab Results - Last 24 Hours (Table) 09/28/19 09/29/19 Range/Units 13:50 06:18 WBC 16.4 H 17.6 H (3.8-10.6) k/uL Hgb 10.5 L (11.4-16.0) gm/dL Hct 32.1 L (34.0-46.0) % MCHC 30.5 L (31.0-37.0) g/dL Neutrophils # 12.8 H 13.3 H (1.3-7.7) k/uL Assessment and Plan Assessment: day #1, doing well Plan: Begin Abilify 5 mg daily. Begin Zoloft 50 mg daily. Continue care. Likely discharge home tomorrow. Time with Patient: Less than 30
[2019-09-29] MEDS: SENNOSIDES-DOCUSATE SODIUM 1 EACH TAB PO SCH ×2 (08:26→19:40)
--- NOTE | 2019-09-29 09:15 | P.PN ---
Progress Note - Text Date:[ 09-29-19] Time:[ 0708] The patient is status post section Vital signs stable VAS: 0-10 Patient has no complaints of pain. The patient incurred some minimal itching yesterday, this itching is now subsiding. Pain meds to be managed by service.
[2019-09-29] MEDS: SERTRALINE 50 MG TAB PO SCH (09:35)
[2019-09-29] MEDS: ARIPiprazole 5 MG TAB PO SCH (15:01)
[2019-09-29] MEDS: HYDROcodone/APAP 5-325MG 1 EACH TAB PO PRN (22:17)
[2019-09-30] MEDS: HYDROcodone/APAP 5-325MG 1 EACH TAB PO PRN ×2 (08:10→11:58)
[2019-09-30] MEDS: SENNOSIDES-DOCUSATE SODIUM 1 EACH TAB PO SCH (08:19)
[2019-09-30] MEDS: ARIPiprazole 5 MG TAB PO SCH (08:19)
[2019-09-30] MEDS: SERTRALINE 50 MG TAB PO SCH (08:19)
[2019-09-30 09:42] VITALS: BP 118/81; PULSE 100; RESP 16; TEMP 97.6
--- NOTE | 2019-09-30 09:59 | P.DS ---
Providers Date of admission: 09/28/19 13:32 Expected date of discharge: 09/30/19 Attending physician: Ines Daniels Primary care physician: Stated None - Discharge Diagnosis(es) (1) Term Current Visit: Yes Status: Acute (2) Active labor Current Visit: Yes Status: Acute (3) Arrest of descent, delivered, current hospitalization Current Visit: Yes Status: Acute (4) Status post section Current Visit: Yes Status: Acute Hospital Course: This pleasant 24-year-old 1 now para 1 presented to labor and delivery at 39-4/7 weeks with complaints of regular painful contractions. Patient was noted to be 6 cm dilated. Patient been receiving routine care that had been essentially uncomplicated. Patient was admitted to labor and delivery quickly progressed to 9 cm and began pushing. Patient noted no descent of the fetus with pushing after 1 hour. Patient was counseled on primary secondary to arrest of descent. Patient was taken back to the operating suite where was performed without difficulty. For further details on the C- section please see the operative report. Patient had a liveborn female weight of 8 lbs. 1 oz. and Apgars of 9 and 9 at one and 5 minutes respect daily. Patient's post course has been essentially uneventful. On this day #2 she is a billing and voiding without difficulty. She is tolerating a regular diet without nausea or vomiting. She states her pain is controlled with oral [place]/ibuprofen. Patient would like discharge home later today. Patient Condition at Discharge: Good Plan - Discharge Summary New Discharge Prescriptions: No Action Pnv No.95/Ferrous Fum/Folic AC [ Multivitamin Tablet] 1 each PO DAILY Acetaminophen Tab [Tylenol] 650 mg PO Q6H Discharge Medication List Pnv No.95/Ferrous Fum/Folic AC [ Multivitamin Tablet] 1 each PO DAILY 09/26/19 [History] Acetaminophen Tab [Tylenol] 650 mg PO Q6H 09/28/19 [History] Follow up Appointment(s)/Referral(s): Ines Daniels MD [STAFF PHYSICIAN] - 2 Weeks Patient Instructions/Handouts: (GEN), (DC) Discharge Disposition: HOME SELF-CARE
== END 2019-09-30 13:25 | disposition home or self-care (01) | DRG 788 ==
LOC: FBPOP 13:12 → 4FBP 13:32
PROVIDERS: ADMIT Obstetrics & Gynecology; ATTEND Obstetrics & Gynecology
PROC: 10907ZC Drainage of Amniotic Fluid, Therapeutic from Products of Conception, Via Natural or Artificial Opening (ICD-10-PCS; 2019-09-28)
PROC: 10D00Z1 Extraction of Products of Conception, Low, Open Approach (ICD-10-PCS; principal; 2019-09-28 19:27)
DX: O77.0 Labor and delivery complicated by meconium in amniotic fluid (principal); G50.0 Trigeminal neuralgia; F31.9 Bipolar disorder, unspecified; O99.344 Other mental disorders complicating childbirth; O62.1 Secondary uterine inertia; F41.9 Anxiety disorder, unspecified; L29.9 Pruritus, unspecified; O99.73 Diseases of the skin and subcutaneous tissue complicating the puerperium; F90.9 Attention-deficit hyperactivity disorder, unspecified type; Z37.0 Single live birth; Z3A.39 39 weeks gestation of pregnancy; Z87.891 Personal history of nicotine dependence; Z79.899 Other long term (current) drug therapy; Z82.49 Family history of ischemic heart disease and other diseases of the circulatory system; Z80.8 Family history of malignant neoplasm of other organs or systems
CPT/HCPCS: 59025; 85025; 86850; 86900; 86901; 99213

== ENCOUNTER 2019-11-16 22:23 | Emergency (ER) | payer OTHER ==
[2019-11-16 22:44] VITALS: RESP 18
--- NOTE | 2019-11-16 23:04 | ED ---
Arrhythmia/Palpitations HPI - General Chief Complaint: Arrhythmia/Palpitations Stated Complaint: Palpitations Time Seen by Provider: 11/16/19 22:31 Source: patient Mode of arrival: ambulatory Limitations: no limitations - History of Present Illness Initial Comments: This patient is 24-year-old woman who presents to be evaluated for palpitations. She states that they started after she had delivered her child during the first week of September. She states she has noticed at times that her heart seems to be beating faster than usual. She states also there have been a feeling of her heart flip-flopping. Patient has not had chest pain, dyspnea, diaphoresis, nausea or vomiting, syncope. MD Complaint: palpitations Onset/Timin -: week(s) Context: occurred during rest Associated Symptoms: denies other symptoms - Related Data Home Medications Medication Instructions Recorded Confirmed Pnv No.95/Ferrous Fum/Folic AC 1 each PO DAILY 09/26/19 11/16/19 [ Multivitamin Tablet] ARIPiprazole [Abilify] 2.5 mg PO BID 11/16/19 11/16/19 Acetaminophen Tab [Tylenol] 500 mg PO DAILY PRN 11/16/19 11/16/19 L.acidoph,Paracasei, B.lactis 1 tab PO DAILY 11/16/19 11/16/19 [Probiotic] Sertraline [Zoloft] 25 mg PO DAILY 11/16/19 11/16/19 Allergies Allergy/AdvReac Type Severity Reaction Status Date / Time No Known Allergies Allergy Verified 11/16/19 22:28 Review of Systems ROS Statement: Those systems with pertinent positive or pertinent negative responses have been documented in the HPI. ROS Other: All systems not noted in ROS Statement are negative. Constitutional: Denies: fever, chills Respiratory: Denies: cough, dyspnea Cardiovascular: Reports: palpitations. Denies: chest pain, dyspnea on exertion, edema, syncope Gastrointestinal: Denies: abdominal pain, nausea, vomiting Genitourinary: Denies: dysuria, hematuria Musculoskeletal: Denies: back pain Skin: Denies: rash Neurological: Denies: headache, weakness, numbness Past Medical History Past Medical History: No Reported History History of Any Multi-Drug Resistant Organisms: None Reported Past Surgical History: Cholecystectomy Past Anesthesia/Blood Transfusion Reactions: No Reported Reaction Past Psychological History: ADD/ADHD, Anxiety, Bipolar Smoking Status: Current every day smoker Past Alcohol Use History: None Reported Past Drug Use History: None Reported - Past Family History Mother Family Medical History: No Reported History General Exam Limitations: no limitations General appearance: alert, in no apparent distress Head exam: Present: atraumatic, normocephalic Eye exam: Present: normal appearance. Absent: scleral icterus, conjunctival injection ENT exam: Present: normal oropharynx Neck exam: Present: normal inspection Respiratory exam: Present: normal lung sounds bilaterally. Absent: respiratory distress, wheezes, rales, rhonchi, stridor Cardiovascular Exam: Present: regular rate, normal rhythm, normal heart sounds. Absent: systolic murmur, diastolic murmur, rubs, gallop GI/Abdominal exam: Present: soft. Absent: distended, tenderness, guarding, rebound, rigid, mass Extremities exam: Present: normal inspection, normal capillary refill. Absent: pedal edema, calf tenderness Back exam: Present: normal inspection. Absent: CVA tenderness (R), CVA tenderness (L) Neurological exam: Present: alert Skin exam: Present: warm, dry, intact, normal color. Absent: rash Course Vital Signs 11/16/19 11/16/19 22:25 23:30 Temperature 98.2 F Pulse Rate 85 90 Respiratory 18 18 Rate Blood Pressure 112/71 117/63 O2 Sat by Pulse 99 100 Oximetry EKG Findings - EKG Results: EKG: interpreted by JIM ERVIN, sinus rhythm (Rate 90 bpm), normal axis, normal QRS, normal ST/T, no acute changes - OR, Pacemaker, Normal: Normal tracing: normal tracing Medical Decision Making - Lab Data Result diagrams: 11/16/19 22:51 11/16/19 22:51 Lab Results 11/16/19 11/16/19 11/16/19 Range/Units 22:51 22:51 22:51 WBC 15.1 H (3.8-10.6) k/uL RBC 4.66 (3.80-5.40) m/uL Hgb 11.8 (11.4-16.0) gm/dL Hct 37.5 (34.0-46.0) % MCV 80.4 (80.0-100.0) fL MCH 25.3 (25.0-35.0) pg MCHC 31.5 (31.0-37.0) g/dL RDW 14.9 (11.5-15.5) % Plt Count 471 H (150-450) k/uL Neutrophils % 63 % Lymphocytes % 26 % Monocytes % 4 % Eosinophils % 3 % Basophils % 1 % Neutrophils # 9.5 H (1.3-7.7) k/uL Lymphocytes # 3.9 (1.0-4.8) k/uL Monocytes # 0.6 (0-1.0) k/uL Eosinophils # 0.5 (0-0.7) k/uL Basophils # 0.1 (0-0.2) k/uL Hypochromasia Slight PT 9.4 (9.0-12.0) sec INR 0.9 (<1.2) APTT 22.9 (22.0-30.0) sec Sodium 137 (137-145) mmol/L Potassium 4.4 (3.5-5.1) mmol/L Chloride 106 (98-107) mmol/L Carbon Dioxide 22 (22-30) mmol/L Anion Gap 9 mmol/L BUN 8 (7-17) mg/dL Creatinine 0.49 L (0.52-1.04) mg/dL Est GFR (CKD-EPI)AfAm >90 (>60 ml/min/1.73 sqM) Est GFR (CKD-EPI)NonAf >90 (>60 ml/min/1.73 sqM) Glucose 98 (74-99) mg/dL Calcium 9.2 (8.4-10.2) mg/dL Magnesium 1.9 (1.6-2.3) mg/dL Total Bilirubin 0.5 (0.2-1.3) mg/dL AST 39 H (14-36) U/L ALT 54 H (4-34) U/L Alkaline Phosphatase 81 (38-126) U/L Troponin I (0.000-0.034) ng/mL Total Protein 7.0 (6.3-8.2) g/dL Albumin 4.0 (3.5-5.0) g/dL TSH 2.700 (0.465-4.680) mIU/L 11/16/19 Range/Units 22:51 WBC (3.8-10.6) k/uL RBC (3.80-5.40) m/uL Hgb (11.4-16.0) gm/dL Hct (34.0-46.0) % MCV (80.0-100.0) fL MCH (25.0-35.0) pg MCHC (31.0-37.0) g/dL RDW (11.5-15.5) % Plt Count (150-450) k/uL Neutrophils % % Lymphocytes % % Monocytes % % Eosinophils % % Basophils % % Neutrophils # (1.3-7.7) k/uL Lymphocytes # (1.0-4.8) k/uL Monocytes # (0-1.0) k/uL Eosinophils # (0-0.7) k/uL Basophils # (0-0.2) k/uL Hypochromasia PT (9.0-12.0) sec INR (<1.2) APTT (22.0-30.0) sec Sodium (137-145) mmol/L Potassium (3.5-5.1) mmol/L Chloride (98-107) mmol/L Carbon Dioxide (22-30) mmol/L Anion Gap mmol/L BUN (7-17) mg/dL Creatinine (0.52-1.04) mg/dL Est GFR (CKD-EPI)AfAm (>60 ml/min/1.73 sqM) Est GFR (CKD-EPI)NonAf (>60 ml/min/1.73 sqM) Glucose (74-99) mg/dL Calcium (8.4-10.2) mg/dL Magnesium (1.6-2.3) mg/dL Total Bilirubin (0.2-1.3) mg/dL AST (14-36) U/L ALT (4-34) U/L Alkaline Phosphatase (38-126) U/L Troponin I <0.012 (0.000-0.034) ng/mL Total Protein (6.3-8.2) g/dL Albumin (3.5-5.0) g/dL TSH (0.465-4.680) mIU/L Disposition Clinical Impression: Palpitations Disposition: HOME SELF-CARE Condition: Good Instructions (If sedation given, give patient instructions): Heart Palpitations (ED) Is patient prescribed a controlled substance at d/c from ED?: No Referrals: Angel Luis Ware MD [Primary Care Provider] - 1-2 days
--- NOTE | 2019-11-16 23:08 | XR ---
EXAMINATION TYPE: XR chest 2V DATE OF EXAM: 11/16/2019 COMPARISON: NONE HISTORY: Dysrhythmia TECHNIQUE: 2 views FINDINGS: Heart and mediastinum are normal. Lungs are clear. Diaphragm is normal. There are chest [place] ds. Bony thorax appears intact. The pulmonary vascularity is normal. IMPRESSION: Normal chest.
[2019-11-16 23:11] LABS: Basophils # (A) 0.1 k/uL (0-0.2); Basophils % (A) 1 %; Eosinophils # (A) 0.5 k/uL (0-0.7); Eosinophils % (A) 3 %; HCT 37.5 % (34.0-46.0); HGB 11.8 gm/dL (11.4-16.0); Hypochromasia Slight; Lymphocytes # (A) 3.9 k/uL (1.0-4.8); Lymphocytes % (A) 26 %; MCH 25.3 pg (25.0-35.0); MCHC 31.5 g/dL (31.0-37.0); MCV 80.4 fL (80.0-100.0); Mean Platelet Volume 7.9; Monocytes # (A) 0.6 k/uL (0-1.0); Monocytes % (A) 4 %; Neutrophils # (A) 9.5 k/uL (1.3-7.7); Neutrophils % (A) 63 %; Platelet Count 471 k/uL (150-450); RBC 4.66 m/uL (3.80-5.40); RDW 14.9 % (11.5-15.5); WBC 15.1 k/uL (3.8-10.6)
[2019-11-16 23:24] LABS: INR 0.9 (<1.2); Partial Thromboplastin Time 22.9 sec (22.0-30.0); Prothrombin Time 9.4 sec (9.0-12.0)
[2019-11-16 23:25] LABS: ALT 54 U/L (4-34); African American GFR (CKD) >90 (>60 ml/min/1.73 sqM); Anion Gap 9 mmol/L; Blood Urea Nitrogen 8 mg/dL (7-17); Calcium 9.2 mg/dL (8.4-10.2); Carbon Dioxide 22 mmol/L (22-30); Chloride 106 mmol/L (98-107); Glucose 98 mg/dL (74-99); Non-African American GFR(CKD) >90 (>60 ml/min/1.73 sqM); Sodium 137 mmol/L (137-145); Total Bilirubin 0.5 mg/dL (0.2-1.3)
[2019-11-16 23:50] LABS: AST 39 U/L (14-36); Alkaline Phosphatase 81 U/L (38-126); Magnesium 1.9 mg/dL (1.6-2.3); Potassium 4.4 mmol/L (3.5-5.1)
[2019-11-17 00:47] VITALS: BP 120/74; PULSE 78; TEMP 98.3
== END 2019-11-17 00:46 | disposition home or self-care (01) ==
LOC: EC 22:23
DX: R00.2 Palpitations (principal); F31.9 Bipolar disorder, unspecified; F41.9 Anxiety disorder, unspecified; F17.200 Nicotine dependence, unspecified, uncomplicated; Z79.899 Other long term (current) drug therapy
CPT/HCPCS: 36415; 71046; 80053; 83735; 84443; 84484; 85025; 85610; 85730; 93005; 99285

== ENCOUNTER 2019-11-26 13:56 | Emergency (ER) | payer OTHER ==
[2019-11-26 14:14] VITALS: BP 121/77; PULSE 86; RESP 18; TEMP 98.8
--- NOTE | 2019-11-26 14:59 | ED ---
SOB HPI - General Chief Complaint: Shortness of Breath Stated Complaint: GEORGETTE Time Seen by Provider: 11/26/19 14:16 Source: patient Mode of arrival: wheelchair Limitations: no limitations - History of Present Illness Initial Comments: 24-year-old female presenting today for chief complaint of palpitations, slight shortness of breath for 3 days. Patient states she is 2 months she states she's had these symptoms on and off and has been wearing a Holter monitor is had lab draws and evaluation on patient. She states that they have not come to the conclusion of what has been going on. Patient states she also has had multiple x-rays. Patient states symptoms that there'll have been worsening but have been persistently on and off. Patient states that she had no chest pain. Patient states she was told her RBC are small by PCP and wanted to go to an urgent care to get her hemoglobin checked, she called the urgent care who told her that they wont so she came to the ER. Patient denies rectal bleeding, black stools, vaginal bleeding. patient has no additional complaints. Upon arrival she appears well nontoxic in no acute distress. VS stable. - Related Data Home Medications Medication Instructions Recorded Confirmed Pnv No.95/Ferrous Fum/Folic AC 1 each PO DAILY 09/26/19 11/16/19 [ Multivitamin Tablet] ARIPiprazole [Abilify] 2.5 mg PO BID 11/16/19 11/16/19 Acetaminophen Tab [Tylenol] 500 mg PO DAILY PRN 11/16/19 11/16/19 L.acidoph,Paracasei, B.lactis 1 tab PO DAILY 11/16/19 11/16/19 [Probiotic] Sertraline [Zoloft] 25 mg PO DAILY 11/16/19 11/16/19 Allergies Allergy/AdvReac Type Severity Reaction Status Date / Time No Known Allergies Allergy Verified 11/26/19 14:13 Review of Systems ROS Statement: Those systems with pertinent positive or pertinent negative responses have been documented in the HPI. ROS Other: All systems not noted in ROS Statement are negative. Past Medical History Past Medical History: No Reported History History of Any Multi-Drug Resistant Organisms: None Reported Past Surgical History: Section Past Anesthesia/Blood Transfusion Reactions: No Reported Reaction Past Psychological History: ADD/ADHD, Anxiety, Bipolar Smoking Status: Former smoker Past Alcohol Use History: Rare Past Drug Use History: None Reported - Past Family History Mother Family Medical History: No Reported History General Exam - General Exam Comments Initial Comments: General: The patient is awake and alert, in no distress, and does not appear acutely ill. Eye: +3 mm pupils are equal, round and reactive to light, extra-ocular movements are intact. No nystagmus. There is normal conjunctiva bilaterally. No signs of icterus. Cardiovascular: There is a regular rate and rhythm. No murmur, rub or gallop is appreciated. Respiratory: Lungs are clear to auscultation, respirations are non-labored, breath sounds are equal. No wheezes, stridor, rales, or rhonchi. Gastrointestinal: Soft, non-distended, non-tender abdomen without masses or organomegaly noted. There is no rebound or guarding present. Musculoskeletal: Normal ROM, no tenderness. Strength 5/5. Sensation intact. R adial pulses equal bilaterally 2+. Neurological: A&O x 3. CN II-XII intact grossly, There are no obvious motor or sensory deficits. Coordination appears grossly intact. Speech is normal. Skin: Skin is warm and dry and no rashes or lesions are noted. No LE edema appreciated. Psychiatric: Cooperative, appropriate mood & affect, normal judgment. Limitations: no limitations Course Vital Signs 11/26/19 14:10 Temperature 98.8 F Pulse Rate 86 Respiratory 18 Rate Blood Pressure 121/77 O2 Sat by Pulse 99 Oximetry Medical Decision Making - Medical Decision Making Patient left AMA prior to completion of care she is aware I wanted her to stay for rule out of blood clots, low hemoglobin. Refused to stay stating she thinks anxiety got the best of her. Is aware of the risk of disability/. Return parameters discussed. Patient left again medical advice prior to completion of care/proper evaluation Ventricular rate 84 bpm, OR interval 134 ms, QRS ration 80 ms, QT/QTC 378/446. This is normal sinus, nonspecific T-wave N O'Krzysztof no ST elevation or depression is appreciated. Disposition Clinical Impression: Left against medical advice Disposition: Left Against Medical Advice Condition: Undetermined Is patient prescribed a controlled substance at d/c from ED?: No Referrals: Angel Luis Ware MD [Primary Care Provider] - 1-2 days Time of Disposition: 15:22
== END 2019-11-26 15:11 | disposition left against medical advice (07) ==
LOC: EC 13:56
DX: Z53.29 Procedure and treatment not carried out because of patient's decision for other reasons (principal); F31.9 Bipolar disorder, unspecified; F41.9 Anxiety disorder, unspecified; Z79.899 Other long term (current) drug therapy; Z87.891 Personal history of nicotine dependence
CPT/HCPCS: 93005; 99284